=== PATIENT | female | born 1930 | race Caucasian/White ===

== ENCOUNTER 2020-05-12 04:31 | Day surgery (SDC) | payer OTHER, BC ==
[2020-05-10 16:17] VITALS: BMI 29.2
[2020-05-12] MEDS ORDERED: PROPOFOL 20 ML ONE (09:32)
[2020-05-12] MEDS ORDERED: EPHEDRINE SULFATE/0.9% NACL/PF 50 MG/10 ML SYRINGE NR ONE (09:33)
[2020-05-12] MEDS ORDERED: ceFAZolin SODIUM 1 GM VIAL ONE (09:40)
[2020-05-12] MEDS ORDERED: BUPIVACAINE HCL/PF 0.5% (5 MG/ML) 30 ML VIAL IJ ONE (09:42)
[2020-05-12] MEDS ORDERED: LIDOCAINE HCL 1%, 10 MG/ML (20ML VIAL) INF ONE ×2 (10:01→10:08)
[2020-05-12] MEDS ORDERED: ACETAMINOPHEN 325 MG TABLET (FP) PO PRN (10:36)
[2020-05-12] MEDS ORDERED: ONDANSETRON 4 MG/2 ML VIAL IVPUSH PRN (10:36)
[2020-05-12] MEDS ORDERED: LACTATED RINGERS SOLUTION 1,000 ML IV SCH (10:45)
[2020-05-12 11:15] VITALS: PULSE 72; TEMP 97.8
--- NOTE | 2020-05-12 12:15 | OP ---
DATE OF OPERATION: 05/12/2020 SURGEON: Justin Manning DPM PREOPERATIVE DIAGNOSIS: Left 3rd digital chronic ulceration associated with osteomyelitis of the digit. POSTOPERATIVE DIAGNOSIS: Left 3rd digital chronic ulceration associated with osteomyelitis of the digit. OPERATION: Left 3rd digital amputation. ANESTHESIA: Local MAC, 10 mL of a 1:1 lidocaine 1% plain with 0.5% Marcaine plain was given in and around the proposed incision site over the 3rd MPJ. ESTIMATED BLOOD LOSS: 5 mL. HEMOSTASIS: Achieved with ankle tourniquet at 250 mmHg. Proper dissection. DESCRIPTION OF PROCEDURE: The patient was brought to the operating room and placed supine on the operating room table. After adequate IV sedation was administered, the previously mentioned 1:1 local block was given in and around the proposed injection site. The foot was then prepped and draped in the usual aseptic fashion. Attention was directed to the 3rd metatarsophalangeal joint on the left foot. A circular incision was created over the 3rd mpj. This incision was meticulously carried down to the level of the 3rd metatarsophalangeal joint. All vital structures were identified and retracted. Using a circumferential incision around the base of the 3rd digit, first the skin was incised down to soft tissue and ultimately down to the level of bone. All soft tissue was released from base of proximal phalanx. The tendons were transected. The area was then inspected any exposed redundant tendon was resected and sent to pathology. The area was copiously irrigated with normal saline that had antibiotic added to it. The wound was closed with 4-0 nylon in simple suture fashion. Post operative injection was put in place. Betadine soaked Adaptic, dry sterile gauze, Dalila, then an ASHLEY bandage with minimal compression. The patient tolerated the above anesthesia and surgical procedure well and left the operating room to recovery area with vital signs stable and vascular status intact to the remaining digits to the left foot. ZORA Moise/[id number] MTDTiffany
[2020-05-12 14:05] VITALS: BP 150/70
--- NOTE | 2020-05-12 17:46 | OP ---
Operative Note - Note: Operative Date: 05/12/20 Pre-Operative Diagnosis: Osteomyelitis 3rd toe left foot with chronic wound. Operation: Amputation 3rd toe left foot Findings: Osteomyelitis 3rd toe left Post-Operative Diagnosis: Same as Pre-op Surgeon: Justin Manning Anesthesia: Local Specimens Removed: 3rd toe left Estimated Blood Loss (mls): 5 Instrument used (Debridements only): 15 blade Operative Report Dictated: No
--- NOTE | 2020-05-17 10:53 | PATH ---
Surgical Pathology Report Patient Name: ALFONZO CASTLE [facility]. Rec. #: [id number] /Age/Gender: 1930 (Age: 89) / F Account: [id number] Location: [facility] SURGICAL Taken: 05/12/2020 Received: 05/12/2020 Reported: 05/17/2020 Physicians: Justin Manning DPM Specimen(s) Received LEFT THIRD TOE Clinical History Chronic wound, osteomyelitis left third toe Final Diagnosis THIRD TOE, LEFT, AMPUTATION: DIGIT WITH ACUTE AND CHRONIC INFLAMMATION, ULCERATION, AND REACTIVE CHANGES. UNDERLYING BONE WITH MODERATE CHRONIC OSTEOMYELITIS. SURGICAL MARGINS ARE VIABLE; BONE MARGIN IS NEGATIVE FOR OSTEOMYELITIS. Electronically Signed Ana Raza M.D. Gross Description Received in formalin labeled "left third toe," is a 4.5 x 1.8 x 1.5 cm toe amputation. The epidermal surface displays a 0.5 x 0.5 cm darden, ulcerated lesion at 0.5 cm from the skin and soft tissue margin. No definitive involvement of the underlying bone is identified grossly. [employer] T[employer] Engineer sections are submitted in 3 cassettes as follows: 1-lesion with underlying bone, following decalcification; 2-bone margin, following decalcification; 3-skin and soft tissue margin. 05/13/2020 [facility]05/13/2020
== END 2020-05-12 13:30 | disposition home or self-care (01) ==
LOC: JASU-SURG 04:31
PROVIDERS: ATTEND Podiatrist Foot Surgery
PROC: 0Y6U0Z0 Detachment at Left 3rd Toe, Complete, Open Approach (ICD-10-PCS; principal; 2020-05-12 09:00)
DX: M86.9 Osteomyelitis, unspecified (principal); M86.8X7 Other osteomyelitis, ankle and foot
CPT/HCPCS: 88305-TC; 88311-TC